=== PATIENT | female | born 1970 | race Caucasian/White ===

== ENCOUNTER 2021-05-17 13:16 | Emergency (ER) | payer OTHER, SELFPAY ==
[2021-05-17 13:24] VITALS: BP 169/94; PULSE 106; RESP 16; TEMP 37.5; O2SAT 99
--- NOTE | 2021-05-17 13:31 | ED.GENADULT ---
HPI - General Adult General Chief complaint: Wound/Laceration Stated complaint: lump on lt foot/pos skin abcess Source: patient Mode of arrival: ambulatory Limitations: no limitations History of Present Illness HPI narrative: Patient is a 51-year-old female who presents the urgent care via POV for evaluation of a skin problem that has been present for approximately 1-1/2 to 2 weeks. Additionally, patient reports she has a lump on left foot and and groin area. She states the lump on her left foot has been there 2 weeks. Nothing improves or worsen symptoms. She believes this may be caused by a calcium deposit as she has multiple existing ones throughout her body. She is concerned the lump in her groin is infected. She admits to shaving pubic hair and reports this area to be erythematous, tender, and open. She also reports it ruptured approx one week ago. Antibiotic ointment, hot compresses, and alcohol pads have provided mild improvement. Tenderness increases with touch. Of note, patient relocated from this area approximately 1 month ago and has yet to find a primary care provider prompting today's visit. Related Data Home Medications Medication Instructions Recorded Confirmed meloxicam [Mobic] 7.5 mg PO DAILY 05/17/21 05/17/21 Allergies Allergy/AdvReac Type Severity Reaction Status Date / Time lidocaine Allergy Palpitation Verified 05/17/21 13:31 s prochlorperazine Allergy Hives Verified 05/17/21 13:31 [From Compazine] Review of Systems Review of Systems: Denies injury. Pertinent negatives fever, chills, sweats, malaise, poor p.o. intake, change in appetite, headache, LOC, dizziness, streaking, drainage, numbness, tingling, loss of sensation, calf pain, warmth, deformity, decreased range of motion, weakness, difficulty with ambulation/coordination, foreign body sensation, deformity, sob, chest pain, and heart palpitations/murmurs.lymphadenopathy, shortness of breath, chest pain, heart palpitations, and heart murmur. [facility] Past Medical History Medical History (Updated 05/17/21 @ 13:50 by Tawana Pope, CLINICAL LABORATORY TECHNOLOGIST, [employer]) Arthritis Comments I have reviewed and agree with the patient's past medical, surgical, social, and family hx as documented by the RN. There is no relevant family history pertinent to the presenting complaint. Exam Narrative: GENERAL: Well-appearing, well-nourished, and in no acute distress. HEAD: Normocephalic, atraumatic. No facial swelling appreciated. EYES: PERRLA and EOMI. No evidence of erythema, swelling, or drainage. ENT: Nares clear, no rhinorrhea or epistaxis.Mucous membranes moist and pink. Uvula is midline without erythema and swelling. No evidence of obstruction, petechial rash, cobblestoning, lesions, ulcers, erythema, swelling, exudates, peritonsillar abscess, tenting, or drooling. Breath odor and voice normal. NECK: Supple. No Lymphadenopathy or nuchal rigidity appreciated. CHEST: Bilateral lung velasquez are clear to auscultation. No respiratory distress. No evidence of cough or pleuritic cp upon examination. HEART: Regular rate and rhythm. No murmur, gallop, or rub heard. EXTREMITIES: 3 cm cyst-like mass noted to lateral aspect of left foot. No evidence of injury, decreased ROM, swelling, cyanosis, hematoma, laceration, abrasion, deformity, rash, or puncture. No evidence of pain with active/passive ROM. No evidence of dislocation, ligament laxity, effusion, or pain at rest. Pulses palpable at 2+, strength 5/5, and cap refill < 3 seconds in affected extremity. DTRs normal. Gait normal. SKIN: Warm, dry. Cellulitis that is mild noted to mons pubis, moderate induration appreciated.. No evidence of abscess, streaking, abrasions/lacerations, petechiae, hematoma, contusion, drainage, or bleeding. NEURO: No focal deficits. Alert and oriented x3. SPECIAL OBSERVATIONS: Smiling. Laughing. No evidence of discomfort. Course Vital Signs Vital signs: Vital Signs Temper[place]
[2021-05-17 13:38] VITALS: BP 169/94; PULSE 106; RESP 16; TEMP 37.5; O2SAT 99
== END 2021-05-17 13:56 | disposition home or self-care (01) ==
PROVIDERS: Emergency Provider Nurse Practitioner Family
DX: R22.42 Localized swelling, mass and lump, left lower limb (principal); N76.2 Acute vulvitis; M19.90 Unspecified osteoarthritis, unspecified site
CPT/HCPCS: 99213; G0463